=== PATIENT | female | born 1960 | race Caucasian/White ===

== ENCOUNTER 2021-08-11 10:59 | Inpatient (IN) | payer MEDICAID ==
[~2021-08-11] VITALS: Ht 152.4 cm; Wt 62.6 kg
[2021-08-11 11:15] VITALS: BP 128/67
[2021-08-11] MEDS ORDERED: NACL 0.9% 1,000 ML IV ONE (11:50)
[2021-08-11] MEDS ORDERED: ONDANSETRON 4 MG/2 ML VIAL IVP ONE (11:50)
[2021-08-11 12:22] LABS: BASOPHILS % (AUTO) 0.8 % (0.0-2.0); EOSINOPHILS # (AUTO) 0.1 K/uL (0-0.4); EOSINOPHILS % (AUTO) 1.9 % (0.0-4.0); HEMATOCRIT 20.3 % (36-48); LYMPHOCYTES # (AUTO) 1.2 K/uL (2.5-16.5); LYMPHOCYTES % (AUTO) 31.7 % (20.5-51.1); MEAN CORPUSCULAR HEMOGLOBIN 23 pg (27-31); MEAN CORPUSCULAR HGB CONC 32 g/dL (33-37); MEAN CORPUSCULAR VOLUME 71.3 fL (80-94); MONOCYTES # (AUTO) 0.3 K/uL (0.8-1.0); MONOCYTES % (AUTO) 7.1 % (1.7-9.3); NEUTROPHILS # (AUTO) 2.2 K/uL (1.8-7.7); NEUTROPHILS % (AUTO) 58.5 % (42.2-75.2); PLATELET COUNT (AUTO) 115 K/uL (140-450); RED BLOOD CELL COUNT(AUTO) 2.85 MIL/uL (4.20-5.40); RED CELL DISTRIBUTION WIDTH 18.2 % (11.6-13.7); WHITE BLOOD COUNT (AUTO) 3.7 K/uL (4.8-10.8)
[2021-08-11 12:37] LABS: ALBUMIN 2.9 g/dL (3.4-5.0); ANION GAP 13.3 (8-16); CARBON DIOXIDE 23.6 mmol/L (21-32); CREATININE 0.6 mg/dL (0.6-1.3); POTASSIUM 3.9 mmol/L (3.5-5.1); TOTAL BILIRUBIN 0.6 mg/dL (0.0-1.0)
[2021-08-11 12:39] LABS: HEMOGLOBIN 6.4 g/dL (12.0-16.0)
[2021-08-11] MEDS ORDERED: PANTOPRAZOLE 40 MG INJ VIAL IVP ONE (13:50)
[2021-08-11] MEDS ORDERED: LISI2.5T12 PO (14:18)
[2021-08-11] MEDS ORDERED: ZOLPIDEM 5 MG TAB PO PRN (14:30)
[2021-08-11] MEDS ORDERED: ONDANSETRON 4 MG/2 ML VIAL IM/IVP PRN (14:30)
[2021-08-11] MEDS ORDERED: POTASSIUM CHLORIDE 10 MEQ TABER PO PRN ×2 (14:30)
[2021-08-11] MEDS ORDERED: MORPHINE SULFATE 2 MG/ML SYR IVP PRN (14:30)
[2021-08-11] MEDS ORDERED: DOCUSATE SODIUM 100 MG GELCAP PO PRN (14:30)
[2021-08-11] MEDS ORDERED: LORazepam 2 MG/ML VIAL IM/IVP PRN (14:30)
[2021-08-11] MEDS ORDERED: MAG SULF 2000 MG/WATER PREMIX 50 ML IV PRN ×2 (14:30)
[2021-08-11] MEDS: NACL 0.9% 1,000 ML IV SCH (14:52)
[2021-08-11 15:18] LABS: CHOL/HDL RATIO 3.2 (1-4.5); MAGNESIUM 1.8 mg/dL (1.8-2.4); PHOSPHORUS 3.1 mg/dL (2.5-4.9); THYROID STIMULATING HORMONE 5.12 uIU/mL (0.34-3.74)
[2021-08-11 16:05] LABS: BILIRUBIN,URINE NEGATIVE (NEGATIVE); BLOOD, URINE NEGATIVE (NEGATIVE); COLOR,URINE YELLOW (YELLOW); LEUKOCYTE ESTERASE ,URINE NEGATIVE (NEGATIVE); NITRITE, URINE NEGATIVE (NEGATIVE); PH,URINE 5.5 (5.0-9.0); UGLUCOSE 2+ (NEGATIVE)
[2021-08-11 16:07] LABS: APPEARANCE,URINE CLEAR (CLEAR)
[2021-08-11 16:42] LABS: BARBITURATE, URINE NEGATIVE ng/ml (NEG <=200); BENZODIAZEPINE, URINE NEGATIVE ng/mL (NEG <=200); CANNABINOID, URINE NEGATIVE ng/mL (NEG <=50); COCAINE, URINE NEGATIVE ng/mL (NEG <=300); OPIATE, URINE NEGATIVE ng/mL (NEG <=2000); PHENCYCLIDINE SCREEN,URINE NEGATIVE ng/mL (NEG <=25)
[2021-08-11] MEDS: METOCLOPRAMIDE 10 MG/2 ML INJ VIAL IVP SCH (17:43)
[2021-08-11] MEDS: SODIUM FERRIC GLUCONATE 125 MG in NACL 0.9% 100 ML IV SCH (17:43)
[2021-08-11] MEDS: OCTREOTIDE ACETATE 1.25 MG in NACL 0.9% 250 ML IV SCH (18:52)
[2021-08-11 22:32] VITALS: BP 111/46
[2021-08-12] VITALS: BP 100/40
[2021-08-12] MEDS: NACL 0.9% 1,000 ML IV SCH ×3 (00:02→20:02)
[2021-08-12 04:00] VITALS: BP 122/51
[2021-08-12 06:19] LABS: BASOPHILS % (AUTO) 0.8 % (0.0-2.0); EOSINOPHILS % (AUTO) 1.9 % (0.0-4.0); HEMATOCRIT 22.3 % (36-48); HEMOGLOBIN 7.2 g/dL (12.0-16.0); LYMPHOCYTES # (AUTO) 1.1 K/uL (2.5-16.5); LYMPHOCYTES % (AUTO) 47.2 % (20.5-51.1); MEAN CORPUSCULAR HEMOGLOBIN 24 pg (27-31); MEAN CORPUSCULAR HGB CONC 33 g/dL (33-37); MEAN CORPUSCULAR VOLUME 74.8 fL (80-94); MONOCYTES # (AUTO) 0.2 K/uL (0.8-1.0); MONOCYTES % (AUTO) 6.9 % (1.7-9.3); NEUTROPHILS % (AUTO) 43.2 % (42.2-75.2); PLATELET COUNT (AUTO) 79 K/uL (140-450); RED BLOOD CELL COUNT(AUTO) 2.98 MIL/uL (4.20-5.40); RED CELL DISTRIBUTION WIDTH 19.8 % (11.6-13.7); WHITE BLOOD COUNT (AUTO) 2.3 K/uL (4.8-10.8)
[2021-08-12 06:28] LABS: MAGNESIUM 1.9 mg/dL (1.8-2.4); PHOSPHORUS 3.5 mg/dL (2.5-4.9)
[2021-08-12 06:42] LABS: ANION GAP 11.7 (8-16); CARBON DIOXIDE 23.1 mmol/L (21-32); CREATININE 0.6 mg/dL (0.6-1.3); POTASSIUM 3.8 mmol/L (3.5-5.1)
[2021-08-12] MEDS: OCTREOTIDE ACETATE 1.25 MG in NACL 0.9% 250 ML IV SCH ×2 (06:49→21:59)
[2021-08-12 08:00] VITALS: BP 140/63
[2021-08-12] MEDS ORDERED: lisinopriL 5 MG TAB PO SCH (09:00)
[2021-08-12] MEDS: METOCLOPRAMIDE 10 MG/2 ML INJ VIAL IVP SCH ×3 (09:27→18:29)
[2021-08-12 12:00] VITALS: BP 138/64
[2021-08-12] MEDS ORDERED: fentaNYL citrate 0.05 MG/ML VIAL ONE (13:02)
[2021-08-12] MEDS ORDERED: diphenhydrAMINE 50 MG/ML VIAL ONE (13:02)
[2021-08-12] MEDS ORDERED: MIDAZOLAM 5 MG/5 ML VIAL ONE (13:03)
[2021-08-12] MEDS ORDERED: fentaNYL citrate 0.05 MG/ML VIAL IVP ONE (13:50)
[2021-08-12] MEDS ORDERED: MIDAZOLAM 2 MG/2 ML VIAL IVP ONE (13:50)
[2021-08-12] MEDS: HYDROcodone/APAP 5/325 MG 1 TAB TAB PO PRN (15:04)
[2021-08-12 16:00] VITALS: BP 118/82
[2021-08-12] MEDS: SODIUM FERRIC GLUCONATE 125 MG in NACL 0.9% 100 ML IV SCH (18:28)
[2021-08-12] MEDS: PROPRANOLOL 20 MG TAB PO SCH (18:29)
[2021-08-12 20:00] VITALS: BP 136/64
[2021-08-12] MEDS: LACTULOSE 20 GM/30 ML UDC PO SCH (21:30)
[2021-08-13] MEDS: HYDROcodone/APAP 5/325 MG 1 TAB TAB PO PRN ×2 (02:58→09:10)
[2021-08-13 03:25] VITALS: BP 133/57
[2021-08-13 07:17] LABS: ANION GAP 11.3 (8-16); CARBON DIOXIDE 23.3 mmol/L (21-32); CREATININE 0.7 mg/dL (0.6-1.3); POTASSIUM 3.6 mmol/L (3.5-5.1)
[2021-08-13 07:18] LABS: BASOPHILS % (AUTO) 0.6 % (0.0-2.0); EOSINOPHILS % (AUTO) 1.5 % (0.0-4.0); HEMATOCRIT 21.7 % (36-48); LYMPHOCYTES # (AUTO) 0.9 K/uL (2.5-16.5); LYMPHOCYTES % (AUTO) 29.4 % (20.5-51.1); MEAN CORPUSCULAR HEMOGLOBIN 24 pg (27-31); MEAN CORPUSCULAR HGB CONC 33 g/dL (33-37); MONOCYTES # (AUTO) 0.2 K/uL (0.8-1.0); MONOCYTES % (AUTO) 7.7 % (1.7-9.3); NEUTROPHILS # (AUTO) 1.9 K/uL (1.8-7.7); NEUTROPHILS % (AUTO) 60.8 % (42.2-75.2); PLATELET COUNT (AUTO) 86 K/uL (140-450); RED BLOOD CELL COUNT(AUTO) 2.89 MIL/uL (4.20-5.40); RED CELL DISTRIBUTION WIDTH 19.8 % (11.6-13.7); WHITE BLOOD COUNT (AUTO) 3.1 K/uL (4.8-10.8)
[2021-08-13 07:28] LABS: MAGNESIUM 1.8 mg/dL (1.8-2.4); PHOSPHORUS 2.9 mg/dL (2.5-4.9)
[2021-08-13 08:00] VITALS: BP 155/64
[2021-08-13] MEDS: LACTULOSE 20 GM/30 ML UDC PO SCH ×2 (09:00→21:00)
[2021-08-13] MEDS: NACL 0.9% 1,000 ML IV SCH (09:00)
[2021-08-13 09:07] LABS: HEPATITIS A ANTIBODY IGM Negative (Negative); HEPATITIS B CORE AB TOTAL Negative (Negative); HEPATITIS B SURFACE ANTIBODY Non Reactive (.); HEPATITIS B SURFACE ANTIGEN Negative (Negative)
[2021-08-13] MEDS: PROPRANOLOL 20 MG TAB PO SCH ×3 (09:09→17:01)
[2021-08-13] MEDS: PANTOPRAZOLE 40 MG TABEC PO SCH (09:09)
[2021-08-13] MEDS: METOCLOPRAMIDE 10 MG/2 ML INJ VIAL IVP SCH ×2 (09:11→12:39)
[2021-08-13 12:00] VITALS: BP 137/56
[2021-08-13] MEDS ORDERED: FUROSEMIDE 20 MG/2 ML VIAL IVP SCH (14:30)
[2021-08-13 15:06] LABS: AFP (TUMOR MARKER) 1.1 ng/mL (0.0-8.3)
[2021-08-13] MEDS: ACETAMINOPHEN 325 MG TAB PO PRN (15:58)
[2021-08-13] MEDS: SODIUM FERRIC GLUCONATE 125 MG in NACL 0.9% 100 ML IV SCH (17:08)
[2021-08-13 18:00] VITALS: BP 143/72
[2021-08-13] MEDS ORDERED: HYDROcodone/APAP 5/325 MG 1 TAB TAB PO PRN (19:50)
[2021-08-13 20:00] VITALS: BP 158/61
[2021-08-13 20:25] LABS: BASOPHILS % (AUTO) 0.2 % (0.0-2.0); EOSINOPHILS # (AUTO) 0.1 K/uL (0-0.4); HEMATOCRIT 27.3 % (36-48); HEMOGLOBIN 8.7 g/dL (12.0-16.0); LYMPHOCYTES # (AUTO) 1.2 K/uL (2.5-16.5); LYMPHOCYTES % (AUTO) 26.3 % (20.5-51.1); MEAN CORPUSCULAR HEMOGLOBIN 25 pg (27-31); MEAN CORPUSCULAR HGB CONC 32 g/dL (33-37); MEAN CORPUSCULAR VOLUME 78.4 fL (80-94); MONOCYTES # (AUTO) 0.4 K/uL (0.8-1.0); NEUTROPHILS # (AUTO) 2.8 K/uL (1.8-7.7); NEUTROPHILS % (AUTO) 63.5 % (42.2-75.2); PLATELET COUNT (AUTO) 56 K/uL (140-450); RED BLOOD CELL COUNT(AUTO) 3.48 MIL/uL (4.20-5.40); RED CELL DISTRIBUTION WIDTH 19.7 % (11.6-13.7); WHITE BLOOD COUNT (AUTO) 4.5 K/uL (4.8-10.8)
[2021-08-14] MEDS: OCTREOTIDE ACETATE 1.25 MG in NACL 0.9% 250 ML IV SCH (01:35)
[2021-08-14 04:00] VITALS: BP 149/51
[2021-08-14] MEDS: ACETAMINOPHEN 325 MG TAB PO PRN (04:29)
[2021-08-14] MEDS: NACL 0.9% 1,000 ML IV SCH (06:02)
[2021-08-14 06:54] LABS: BASOPHILS % (AUTO) 0.3 % (0.0-2.0); EOSINOPHILS # (AUTO) 0.1 K/uL (0-0.4); EOSINOPHILS % (AUTO) 1.4 % (0.0-4.0); HEMATOCRIT 25.9 % (36-48); HEMOGLOBIN 8.5 g/dL (12.0-16.0); LYMPHOCYTES # (AUTO) 0.9 K/uL (2.5-16.5); LYMPHOCYTES % (AUTO) 22.8 % (20.5-51.1); MEAN CORPUSCULAR HEMOGLOBIN 25 pg (27-31); MEAN CORPUSCULAR HGB CONC 33 g/dL (33-37); MEAN CORPUSCULAR VOLUME 76.3 fL (80-94); MONOCYTES # (AUTO) 0.3 K/uL (0.8-1.0); MONOCYTES % (AUTO) 7.5 % (1.7-9.3); NEUTROPHILS # (AUTO) 2.8 K/uL (1.8-7.7); PLATELET COUNT (AUTO) 83 K/uL (140-450); RED BLOOD CELL COUNT(AUTO) 3.39 MIL/uL (4.20-5.40); RED CELL DISTRIBUTION WIDTH 19.7 % (11.6-13.7); WHITE BLOOD COUNT (AUTO) 4.1 K/uL (4.8-10.8)
[2021-08-14 06:55] LABS: MAGNESIUM 1.7 mg/dL (1.8-2.4); PHOSPHORUS 2.6 mg/dL (2.5-4.9)
[2021-08-14 06:59] LABS: ANION GAP 13.6 (8-16); CARBON DIOXIDE 21.7 mmol/L (21-32); CREATININE 0.7 mg/dL (0.6-1.3); POTASSIUM 3.3 mmol/L (3.5-5.1)
[2021-08-14] MEDS ORDERED: LISI-487 PO (08:18)
[2021-08-14] MEDS ORDERED: FERR325E14 PO (08:18)
[2021-08-14] MEDS ORDERED: POTA10TA70 PO (08:18)
[2021-08-14] MEDS ORDERED: PROP20TA29 PO (08:20)
[2021-08-14] MEDS ORDERED: LACT-103 PO (08:22)
[2021-08-14] MEDS: LACTULOSE 20 GM/30 ML UDC PO SCH ×3 (09:19→11:47)
[2021-08-14] MEDS: PROPRANOLOL 20 MG TAB PO SCH (09:19)
[2021-08-14] MEDS: PANTOPRAZOLE 40 MG TABEC PO SCH (09:19)
[2021-08-14] MEDS ORDERED: PROPRANOLOL 20 MG TAB PO SCH (13:00)
== END 2021-08-14 14:05 | disposition home or self-care (01) | DRG 242 ==
LOC: MED 10:59 → MTU 14:32
PROC: 30233N1 Transfusion of Nonautologous Red Blood Cells into Peripheral Vein, Percutaneous Approach (ICD-10-PCS; 2021-08-11)
PROC: 06L38CZ Occlusion of Esophageal Vein with Extraluminal Device, Via Natural or Artificial Opening Endoscopic (ICD-10-PCS; principal; 2021-08-12 12:30)
DX: I85.01 Esophageal varices with bleeding (principal); E44.0 Moderate protein-calorie malnutrition; K75.4 Autoimmune hepatitis; K74.3 Primary biliary cirrhosis; D62 Acute posthemorrhagic anemia; E86.0 Dehydration; R55 Syncope and collapse; Z20.822 Contact with and (suspected) exposure to COVID-19; I10 Essential (primary) hypertension; K59.00 Constipation, unspecified; Z88.8 Allergy status to other drugs, medicaments and biological substances; Z68.27 Body mass index [BMI] 27.0-27.9, adult
CPT/HCPCS: 36415; 36430; 80048; 80053; 80305; 81003; 82105; 83036; 83516; 83735; 83880; 84100; 84134; 84443; 85025; 85610; 85730; 86677; 86704; 86706; 86708; 86709; 86803; 86886; 86900; 86901; 86920; 87081; 87340; 93005; 96361; 96374; 96375; 99291; C9113; J1200; J2250; J2270; J2354; J2405; J2765; J2916; J3010; J7030; P9016; Q9967

== ENCOUNTER 2021-09-10 11:51 | Emergency (ER) | payer MEDICAID ==
[~2021-09-10] VITALS: Ht 152.4 cm; Wt 62.1 kg
[~2021-09-10 11:51] MED LIST: FERR325E14 PO; LACT-103 PO; LISI-487 PO; POTA10TA70 PO; PROP20TA29 PO
[2021-09-10 11:53] VITALS: BP 143/65
--- NOTE | 2021-09-10 12:03 | NUR ---
PT AMBULATED TO ROOM 9
--- NOTE | 2021-09-10 12:11 | NUR ---
PATIENT PRESENTS TO ED WITH PAIN TO FRONT RIGHT ABDOMEN. PT STATES SHE HAS PAIN WITH NAUSEA. DENIES V/D; SKIN IS PINK/WARM/DRY; AAOX4 WITH EVEN AND STEADY GAIT; LUNGS CLEAR BL; HR EVEN AND REGULAR; PT DENIES ANY FEVER, CP, SOB, OR COUGH AT THIS TIME; PATIENT STATES PAIN OF 7/10 AT THIS TIME; VSS; PATIENT POSITIONED FOR COMFORT; HOB ELEVATED; BEDRAILS UP X2; BED DOWN. HX: LIVER CIRRHOSIS, DM, HTN, UNK THYROID ISSUES, KIDNEY STONES ALLERGIES: AZITHROMYCIN MEDS: NO COMPLIANT FOR 4 MONTHS (STATES SHE HAS NOT HAD COVERAGE DUE TO HER PARTICULAR INSURANCE)
--- NOTE | 2021-09-10 12:38 | NUR ---
DR LANZA AT BEDSIDE EVALUATING PT
[2021-09-10] MEDS ORDERED: KETOROLAC 30 MG/ML VIAL IVP ONE (12:40)
--- NOTE | 2021-09-10 12:58 | NUR ---
PT TAKEN TO CT VIA W/C
[2021-09-10 13:05] LABS: BASOPHILS % (AUTO) 0.5 % (0.0-2.0); EOSINOPHILS # (AUTO) 0.1 K/uL (0-0.4); HEMATOCRIT 33.9 % (36-48); HEMOGLOBIN 11.1 g/dL (12.0-16.0); LYMPHOCYTES % (AUTO) 28.6 % (20.5-51.1); MEAN CORPUSCULAR HEMOGLOBIN 27 pg (27-31); MEAN CORPUSCULAR HGB CONC 33 g/dL (33-37); MEAN CORPUSCULAR VOLUME 80.8 fL (80-94); MONOCYTES # (AUTO) 0.3 K/uL (0.8-1.0); NEUTROPHILS # (AUTO) 2.2 K/uL (1.8-7.7); NEUTROPHILS % (AUTO) 59.9 % (42.2-75.2); PLATELET COUNT (AUTO) 112 K/uL (140-450); RED CELL DISTRIBUTION WIDTH 23.5 % (11.6-13.7); WHITE BLOOD COUNT (AUTO) 3.6 K/uL (4.8-10.8)
--- NOTE | 2021-09-10 13:05 | NUR ---
PT BACK FROM CT
[2021-09-10 13:30] LABS: ALBUMIN 3.1 g/dL (3.4-5.0); ANION GAP 10.5 (8-16); CARBON DIOXIDE 26.8 mmol/L (21-32); CREATININE 0.7 mg/dL (0.6-1.3); POTASSIUM 4.3 mmol/L (3.5-5.1); TOTAL BILIRUBIN 1.2 mg/dL (0.0-1.0)
--- NOTE | 2021-09-10 13:54 | NUR ---
URINE SAMPLE COLLECTED AND SENT TO LAB WITH KESHAV JIMENEZ
[2021-09-10] MEDS ORDERED: IBUP-2213 PO (13:57)
[2021-09-10] MEDS ORDERED: ACET-8386 PO (13:57)
[2021-09-10 14:13] LABS: APPEARANCE,URINE CLEAR (CLEAR); BILIRUBIN,URINE 1+ (NEGATIVE); BLOOD, URINE NEGATIVE (NEGATIVE); COLOR,URINE ORANGE (YELLOW); LEUKOCYTE ESTERASE ,URINE NEGATIVE (NEGATIVE); NITRITE, URINE NEGATIVE (NEGATIVE); UGLUCOSE 1+ (NEGATIVE)
[2021-09-10 14:44] VITALS: BP 143/65
--- NOTE | 2021-09-10 14:44 | NUR ---
Patient discharged with v/s stable. Written and verbal after care instructions given and explained. Patient alert, oriented and verbalized understanding of instructions. Ambulatory with steady gait. All questions addressed prior to discharge. ID band removed. Patient advised to follow up with PMD. Rx of HYRDOCODONE/ACETAMINOPHEN AND IBUPROFEN given. Patient educated on indication of medication including possible reaction and side effects. Opportunity to ask questions provided and answered.
== END 2021-09-10 14:44 | disposition home or self-care (01) ==
LOC: MED 11:51
DX: R10.31 Right lower quadrant pain (principal); E11.9 Type 2 diabetes mellitus without complications; I10 Essential (primary) hypertension; Z79.4 Long term (current) use of insulin; Z79.899 Other long term (current) drug therapy; Z88.1 Allergy status to other antibiotic agents; Z98.890 Other specified postprocedural states; Z90.49 Acquired absence of other specified parts of digestive tract
CPT/HCPCS: 36415; 74176; 80053; 81003; 83690; 85025; 96374; 99284; J1885

== ENCOUNTER 2021-10-23 08:52 | Emergency (ER) | payer SELFPAY ==
[~2021-10-23] VITALS: Ht 152.4 cm; Wt 64.4 kg
[~2021-10-23 08:52] MED LIST changes: +ACET-8386 PO; +IBUP-2213 PO
[2021-10-23 09:42] VITALS: BP 151/74
--- NOTE | 2021-10-23 09:46 | NUR ---
PT SENT TO LOBBY
[2021-10-23 11:57] LABS: BASOPHILS % (AUTO) 0.6 % (0.0-2.0); EOSINOPHILS # (AUTO) 0.1 K/uL (0-0.4); EOSINOPHILS % (AUTO) 1.8 % (0.0-4.0); HEMATOCRIT 33.3 % (36-48); HEMOGLOBIN 11.1 g/dL (12.0-16.0); LYMPHOCYTES # (AUTO) 0.8 K/uL (2.5-16.5); LYMPHOCYTES % (AUTO) 28.4 % (20.5-51.1); MEAN CORPUSCULAR HEMOGLOBIN 28 pg (27-31); MEAN CORPUSCULAR HGB CONC 34 g/dL (33-37); MEAN CORPUSCULAR VOLUME 82.2 fL (80-94); MONOCYTES # (AUTO) 0.2 K/uL (0.8-1.0); MONOCYTES % (AUTO) 8.3 % (1.7-9.3); NEUTROPHILS # (AUTO) 1.8 K/uL (1.8-7.7); NEUTROPHILS % (AUTO) 60.9 % (42.2-75.2); PLATELET COUNT (AUTO) 73 K/uL (140-450); RED BLOOD CELL COUNT(AUTO) 4.05 MIL/uL (4.20-5.40); RED CELL DISTRIBUTION WIDTH 16.7 % (11.6-13.7); WHITE BLOOD COUNT (AUTO) 2.9 K/uL (4.8-10.8)
[2021-10-23 12:52] LABS: ALBUMIN 3.1 g/dL (3.4-5.0); ANION GAP 12.8 (8-16); CARBON DIOXIDE 25.7 mmol/L (21-32); CREATININE 0.6 mg/dL (0.6-1.3); POTASSIUM 3.5 mmol/L (3.5-5.1)
[2021-10-23 14:45] LABS: APPEARANCE,URINE CLEAR (CLEAR); BILIRUBIN,URINE NEGATIVE (NEGATIVE); BLOOD, URINE NEGATIVE (NEGATIVE); COLOR,URINE YELLOW (YELLOW); LEUKOCYTE ESTERASE ,URINE NEGATIVE (NEGATIVE); NITRITE, URINE NEGATIVE (NEGATIVE); UGLUCOSE 2+ (NEGATIVE)
[2021-10-23] MEDS ORDERED: AMOX-1000 PO (16:11)
[2021-10-23] MEDS ORDERED: BEN10 PO (16:13)
[2021-10-23] MEDS ORDERED: ACET-10509 PO (16:13)
[2021-10-23] MEDS ORDERED: LACT1TAB47 PO (16:13)
--- NOTE | 2021-10-23 16:24 | NUR ---
DISCHARGED BY DR. TAMRA CAMARILLO, DO @ [id number] Patient discharged with v/s stable. Written and verbal after care instructions given and explained. Patient alert, oriented and verbalized understanding of instructions. Ambulatory with steady gait. All questions addressed prior to discharge. ID band removed. Patient advised to follow up with PMD. Rx of Acetaminophen, Amoxicillin/Potassium, Dicyclomine Hydrochloride, Lactobacillus Acidophilus given. Patient educated on indication of medication including possible reaction and side effects. Opportunity to ask questions provided and answered.
== END 2021-10-23 16:24 | disposition home or self-care (01) ==
LOC: MED 08:52
DX: K52.9 Noninfective gastroenteritis and colitis, unspecified (principal); K74.60 Unspecified cirrhosis of liver; E11.9 Type 2 diabetes mellitus without complications; I10 Essential (primary) hypertension; Z90.49 Acquired absence of other specified parts of digestive tract; Z98.890 Other specified postprocedural states; Z88.1 Allergy status to other antibiotic agents; Z79.899 Other long term (current) drug therapy
CPT/HCPCS: 36415; 80053; 81003; 82150; 83690; 85025; 99284